=== PATIENT | female | born 1970 | race Caucasian/White ===

== ENCOUNTER 2017-03-21 11:01 | Emergency (ER) | payer OTHER ==
--- NOTE | 2017-03-21 16:56 | ED ORDER SUMMARY ---
..... Patient: TOMMIE FRIAS OrderSheet [facility] VisitID: [id number] [address] [place] [address] 47y, F Registration Date/Time: 03/21/2017 ORDER SHEET Weight: 90.7 kg (stated) Allergies: No Known Drug Allergy GENERAL ORDERS: CBC w Diff Urgent (11:03/21/2017 SStone R.N. per protocol) (11:21 SStone R.N.) CMP Urgent (:03/21/2017 SStone R.N. per protocol) (11:21 SStone R.N.) UA-Culture if indicated Urgent (:03/21/2017 SStone R.N. per protocol) (11:21 SStone R.N.) Amylase Urgent (:03/21/2017 SStone R.N. per protocol) (11:21 SStone R.N.) Lipase Urgent (:03/21/2017 SStone R.N. per protocol) (11:21 SStone R.N.) Lactate, Serum Urgent (14:03/21/2017 Lety LARA) (Ack 14:18 Lilliana) (15:16 Lilliana) MEDICATION ORDERS: IV FLUIDS: IV NS with Normal Saline 1 Liter: initial bolus 1000 mL (1000 mL/hr), then 1000 mL/hr for X1 (NOW) (:03/21/2017 SStone R.N. per protocol) (Ack 11:21 SStone R.N.) (11:32 SStone R.N.) IV Saline Lock (11:03/21/2017 SStone R.N. per protocol) (Ack 11:21 SStone R.N.) Zofran IV 4 mg (NOW) (11:25 03/21/2017 Lety LARA) (Ack 11:30 SStone R.N.) (11:31 SStone R.N.) Levaquin IV 750 mg/150 mL (NOW) (12:03/21/2017 Lety LARA) (Ack 12:13 SStone R.N.) Demerol IV 12.5 mg (NOW) (12:07 03/21/2017 Lety LARA) (Ack 12:13 SStone R.N.) (12:23 SStone R.N.) Reglan IV 10 mg (NOW) (12:07 03/21/2017 Lety LARA) (Ack 12:13 SStone R.N.) (12:23 SStone R.N.) KCl IV 20 meq/100mL (Run no faster than 10 units/hr, Run no faster than 10 mEq/hr) (13:24 03/21/2017 Lety LARA) (13:52 SStone R.N.) Demerol IV 12.5 mg (NOW) (14:41 03/21/2017 SStone R.N. verbal order read back to Lety LARA) (14:42 SStone R.N.) IV NS : initial bolus 1000 mL (1000 mL/hr), then 1000 mL/hr for X1 (NOW) (16:26 03/21/2017 SStone R.N. verbal order read back to Lety LARA) (16:27 SStone R.N.) IV NS : initial bolus none -, then 150 mL/hr (NOW) (16:26 03/21/2017 SStone R.N. verbal order read back to Lety LARA) (16:29 SStone R.N.) ORDER SHEET NOTES: [Electronically signed by oRsa Kapoor R.N. (17:12 03/21/2017)] [Electronically signed by Dwaine Pacheco MD (06:55 03/23/2017)] [Electronically locked/signed by Rosa Kapoor R.N. (17:12 03/21/2017)]
--- NOTE | 2017-03-21 16:56 | ED ORDER SUMMARY ---
..... Patient: TOMMIE FRIAS OrderSheet [facility] VisitID: [id number] [address] [place] [address] 47y, F Registration Date/Time: 03/21/2017 ORDER SHEET Weight: 90.7 kg (stated) Allergies: No Known Drug Allergy GENERAL ORDERS: CBC w Diff Urgent (11:03/21/2017 SStone R.N. per protocol) (11:21 SStone R.N.) CMP Urgent (:03/21/2017 SStone R.N. per protocol) (11:21 SStone R.N.) UA-Culture if indicated Urgent (:03/21/2017 SStone R.N. per protocol) (11:21 SStone R.N.) Amylase Urgent (:03/21/2017 SStone R.N. per protocol) (11:21 SStone R.N.) Lipase Urgent (:03/21/2017 SStone R.N. per protocol) (11:21 SStone R.N.) Lactate, Serum Urgent (14:03/21/2017 Lety LARA) (Ack 14:18 Lilliana) (15:16 Lilliana) MEDICATION ORDERS: IV FLUIDS: IV NS with Normal Saline 1 Liter: initial bolus 1000 mL (1000 mL/hr), then 1000 mL/hr for X1 (NOW) (:03/21/2017 SStone R.N. per protocol) (Ack 11:21 SStone R.N.) (11:32 SStone R.N.) IV Saline Lock (11:03/21/2017 SStone R.N. per protocol) (Ack 11:21 SStone R.N.) Zofran IV 4 mg (NOW) (11:25 03/21/2017 Lety LARA) (Ack 11:30 SStone R.N.) (11:31 SStone R.N.) Levaquin IV 750 mg/150 mL (NOW) (12:03/21/2017 Lety LARA) (Ack 12:13 SStone R.N.) Demerol IV 12.5 mg (NOW) (12:07 03/21/2017 Lety LARA) (Ack 12:13 SStone R.N.) (12:23 SStone R.N.) Reglan IV 10 mg (NOW) (12:07 03/21/2017 Lety LARA) (Ack 12:13 SStone R.N.) (12:23 SStone R.N.) KCl IV 20 meq/100mL (Run no faster than 10 units/hr, Run no faster than 10 mEq/hr) (13:24 03/21/2017 Lety LARA) (13:52 SStone R.N.) Demerol IV 12.5 mg (NOW) (14:41 03/21/2017 SStone R.N. verbal order read back to Lety LARA) (14:42 SStone R.N.) IV NS : initial bolus 1000 mL (1000 mL/hr), then 1000 mL/hr for X1 (NOW) (16:26 03/21/2017 SStone R.N. verbal order read back to Lety LARA) (16:27 SStone R.N.) IV NS : initial bolus none -, then 150 mL/hr (NOW) (16:26 03/21/2017 SStone R.N. verbal order read back to Lety LARA) (16:29 SStone R.N.) ORDER SHEET NOTES: [Electronically signed by Rosa Kapoor R.N. (17:12 03/21/2017)] [Electronically signed by Dwaine Pacheco MD (06:55 03/23/2017)] [Electronically locked/signed by Rosa Kapoor R.N. (17:12 03/21/2017)]
--- NOTE | 2017-03-21 16:56 | ED NURSING NOTES ---
Clinical Report - Nurses [facility] [place] [address] 03/21/2017 11:03 Patient: TOMMIE FRIAS TRIAGE Triage time 11:15. Chief Complaint: ABDOMINAL PAIN, NAUSEA, VOMITING and DIARRHEA. --11:19 Rosa Kapoor R.N. 11:15 03/21/17. BP: 135/99. HR: 48. RR: 24. O2 saturation: 96%. Temp: 98.7 F. Pain level now: 07/17. --11:19 Rosa Kapoor R.N. Weight: 90.7 kg stated. Height/Length: 67 inches Per Patient. BMI: 31.3. --11:17 Rosa Kapoor R.N. Medications lisinopril daily . --11:16 Rosa Kapoor R.N. Percocet Oral (Tablet 10-325 mg) up to 7 tablets, daily. --12:39 Rosa Kapoor R.N. The following entry was struck by Rosa Kapoor R.N., 12:39 (03/21/17) Reason - wrong value. <<STRICKEN ENTRY-- Pecocet prn . --11:16 Rosa Kapoor R.N. --END STRIKE>>. Allergies No Known Drug Allergy. --11:17 Rosa Kapoor R.N. History Arrived by private vehicle. Historian: patient. Onset. (3 days ago). ( Unable to keep anything down x 3 days.). PAST MEDICAL HX: Immunizations: up-to-date. SOCIAL HX: Current every day light tobacco smoker (cigarette)- less than 1/2 a pack per day. No alcohol use or drug use. No recent travel. No known contact with a sick individual. --11:19 Rosa Kapoor R.N. ( weakness). --11:25 Rosa Kapoor R.N. PROBLEMS: Hypertension. --11:17 Rosa Kapoor R.N. ADDITIONAL SURGERIES: Right knee surgery. --11:17 Rosa Kapoor R.N. NURSING PROGRESS NOTES 11:29 03/21/2017 Site #1 started via IV in the right hand with an 20g angiocath; one attempt. --11:29 Rosa Kapoor R.N. Pulse oximeter and NIBP monitor placed on patient. Patient gowned. Patient ID band checked. Instructions provided to collect clean catch urine and patient verbalized understanding. Clean catch urine collected with return of dae-colored cloudy urine; sample sent to lab for urinalysis. Call light placed in reach. Side rails up x 1. Patient waiting for evaluation. --11:29 Rosa Kapoor R.N. 11:31 03/21/2017 Zofran (Ondansetron HCl) IVP 4 mg given over 2 minute(s) via site #1. Allergies verified and confirmed 5 rights. IV patency established. IV site checked: no pain, redness, or swelling. IV flushed thoroughly pre- and post-medication administration. --11:31 Rosa Kapoor R.N. 11:32 03/21/2017 Started bag #1 1000 mL IV Fluids IV NS (Saline); at 1000 mL/hr over 1 hour(s) via site #1. Allergies verified and confirmed 5 rights. IV patency established. IV site checked: no pain, redness, or swelling. IV flushed thoroughly pre- and post-medication administration. --11:32 Rosa Kapoor R.N. 12:13 03/21/2017 Demerol (Meperidine HCl) IVP 12.5 mg given over 2 minute(s) via site #1. --12:23 Rosa Kapoor R.N. 12:23 03/21/2017 Reglan (Metoclopramide HCl) IVP 10 mg given over 10 minute(s) via site #1. Allergies verified and confirmed 5 rights. IV patency established. IV site checked: no pain, redness, or swelling. IV flushed thoroughly pre- and post-medication administration. --12:23 Rosa Kapoor R.N. 12:34 03/21/17. BP: 133/72. HR: 100. RR: 20. O2 saturation: 100%. Pain level now: 03/16. --12:37 Rosa Kapoor R.N. ( pt reports minimal relief with the Demerol, now 5/10 from 07/17. Will continue to monitor.). --12:37 Rosa Kapoor R.N. 13:52 03/21/2017 Started 20 meq of KCL (Potassium Chloride) IVPB in bag #1 100 mL; at 50 mL/hr over 2 hour(s) via site #1; Allergies verified and confirmed 5 rights. IV patency established. IV site checked: no pain, redness, or swelling. IV flushed thoroughly pre- and post-medication administration. --13:52 Rosa Kapoor R.N. 13:52 03/21/17. BP: 153/100. HR: 103. O2 saturation: 100%. Pain level now: 03/16. --13:52 Rosa Kapoor R.N. 14:42 03/21/2017 Demerol (Meperidine HCl) IVP 12.5 mg given over 1 minute(s) via site #1. Allergies verified and confirmed 5 rights. IV patency established. IV site checked: no pain, redness, or swelling. IV flushed thoroughly pre- and post-medication administration. --14:42 Rosa Kapoor R.N. 15:33 03/21/17. BP: 135/75. HR: 90. RR: 18. O2 saturation: 97%. Temp: 99.8 F. Pain level now: 12/17. --15:33 Rosa Kapoor R.N. ( pt reports per pain has decreased to a 2/10 and tolerable. Requesting food/water. notified.). --15:33 Rosa Kapoor R.N. 14:00- pt tolerated water well, given crackers. --16:03 Rosa Kapoor R.N. late entry - 15:45- po challenge with water. --16:02 Rosa Kapoor R.N. 16:03 03/21/17. BP: 141/73. --16:04 Rosa Kapoor R.N. ( pt tolerated po well. Resting quietly. given another warm blanket.). --16:26 Rosa Kapoor R.N. 13:52 03/21/2017 Started bag #1 1000 mL IV Fluids IV NS (Saline); at 1000 mL/hr over 1 hour(s) via site #1 via IV pump. Allergies verified and confirmed 5 rights. --16:27 Rosa Kapoor R.N. 13:52 03/21/2017 IV Fluids IV NS Discontinued: bag #1 infused. Total amount infused: 1000 mL. IV patency established. IV site checked: no pain, redness, or swelling. IV flushed thoroughly. --16:28 Rosa Kapoor R.N. 14:52 03/21/2017 IV Fluids IV NS Discontinued: bag #2 infused. Total amount infused: 1000 mL. IV patency established. IV site checked: no pain, redness, or swelling. IV flushed thoroughly. --16:28 Rosa Kapoor R.N. 14:55 03/21/2017 Started bag #1 1000 mL IV Fluids IV NS (Saline); at 150 mL/hr over 7.5 hour(s) via site #1 --16:29 Rosa Kapoor R.N. 17:11 03/21/2017 IV Fluids IV NS Discontinued: bag #3 STOPPED upon discharge. Total amount infused: 800 mL. IV patency established. IV site checked: no pain, redness, or swelling. IV flushed thoroughly. --17:11 Rosa Kapoor R.N. DISPOSITION / DISCHARGE 17:10 03/21/2017 Site #1 removed upon discharge. --17:10 Rosa Kapoor R.N. Departure time: 1711. No learning barriers present. Discharge instructions provided and reviewed with the patient. Reviewed warnings (return for worsening s/s). Reviewed medication(s) side effects information. Prescription(s) given to the patient. Reviewed referrals (PCP). Patient verbalized understanding. Written instructions provided in Maldivian. The patient was discharged by the physician. She was discharged home. She left the Emergency Department ambulatory and via private vehicle. Patient driving. --17:11 Rosa Kapoor R.N. 17:10 03/21/17. BP: 140/72. HR: 92. RR: 18. O2 saturation: 97%. Temp: 99.8 F. Pain level now: 12/17. --17:11 Rosa Kapoor R.N. Locked/Released at 03/21/2017 17:12 by Rosa Kapoor R.N.
--- NOTE | 2017-03-21 16:56 | ED CLINICAL REPORT ---
Clinical Report - Physicians/Mid Levels [facility] [address] [place] [address] 03/21/2017 11:03 Patient: TOMMIE FRIAS Time Seen: 12:00 Mar 21 2017. Arrived- By private vehicle. Historian- patient. CPT: ER phys charges level 4 (#[id number]). HISTORY OF PRESENT ILLNESS Chief Complaint: VOMITING and DIARRHEA. ABDOMINAL CRAMPS. 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 (3 days ago). ( Unable to keep anything down x 3 days and is still present. No recent travel. She has had nausea, vomiting, diarrhea and abdominal pain. Has not recently been on antibiotics. No history of possible bad food exposure or known contact with a sick individual. The illness is described as moderate. Similar symptoms previously: None. Recent medical care: Not recently seen/assessed. REVIEW OF SYSTEMS No fever, muscle aches, difficulty with urination, dark urine or headache. No dizziness, cough, chest pain, difficulty breathing or excessive urination. No skin rash or back pain. Denies current . All systems otherwise negative, except as recorded above. PAST HISTORY Hypertension. Problems: Cervical Strain. Myofascial Strain. Thyroid Disease. Medications: Pecocet prn . lisinopril daily . Allergies: No Known Drug Allergy. SOCIAL HISTORY Heavy tobacco smoker (cigarette)- less than 1 pack per day. No alcohol use or drug use. ADDITIONAL NOTES The nursing notes have been reviewed. PHYSICAL EXAM Vital Signs: 03/21/2017 11:15 BP: 135/99. HR: 48. RR: 24. O2 saturation: 96%. Temp: 98.7 F. Pain level now: 9/10. Appearance: Alert. Patient in mild distress. Eyes: Eyes normal inspection. ENT: Dry mucous membranes present. Pharynx normal. Neck: Normal inspection. No meningeal signs. CVS: Normal heart rate and rhythm. Heart sounds normal. Pulses normal. No cardiac murmur. Respiratory: No respiratory distress. Breath sounds normal. Abdomen: Soft. Mild tenderness in the periumbilical area. Bowel sounds normal. Back: Normal inspection. No CVA tenderness. Skin: Skin warm. Normal skin color. No rash. Extremities: Extremities exhibit normal ROM. No lower extremity edema. Neuro: Oriented X 3. No motor deficit. No sensory deficit. LABS, X-RAYS, AND EKG Laboratory Tests: UA-Culture if indicated: (EDUARDO: 03/21/2017 11:15) ( [facility] 03/21/2017 11:36) Final results Test Result Flag Units (Reference) URINE COLOR JAQUI URINE APPEARANCE CLOUDY URINE GLUCOSE NEGATIVE (NEGATIVE) URINE BILIRUBIN NEGATIVE (NEGATIVE) URINE KETONE NEGATIVE (NEGATIVE) URINE SPECIFIC GRAVITY >= 1.030 (1.010-1.030) URINE PH 6.0 (5.0-8.0) URINE PROTEIN 1+ (NEGATIVE) URINE UROBILINOGEN 0.2 EU/dL (0.2-1.0) URINE NITRITE NEGATIVE (NEGATIVE) URINE BLOOD 3+ (NEGATIVE) URINE LEUK ESTERASE POSITIVE (NEGATIVE) URINE RBC 3-5 rbc/hpf (0-1) URINE WBC 50-75 wbc/hpf (0-1) URINE EPITHELIAL CELLS 5-10 EPI/hpf (0-5) URINE BACTERIA MANY (4+) (NONE SEEN) URINE COMMENT CULTURE INDICATED URINE CULTURES ARE SET-UP BASED ON THE FOLLOWING CRITERIA:POSITIVE NITRITEPOSITIVE LEUKOCYTE ESTERASEGREATER THAN 10 WHITE BLOOD CELLSMODERATE (2+) OR GREATER BACTERIA CBC w Diff: (EDUARDO: 03/21/2017 11:35) ( [facility] 03/21/2017 12:01) Final results Test Result Flag Units (Reference) WHITE BLOOD COUNT 16.6 H K/uL (4.5-11.5) RED BLOOD COUNT 5.10 M/uL (4.00-5.20) HEMOGLOBIN 15.8 gm/dL (12.0-16.0) HEMATOCRIT 47.4 H % (36.0-46.0) MEAN CELL VOLUME 93 fL (80-100) MEAN CORPUSCULAR HGB 31 pg (26-34) MEAN CORPUSCULAR HGB CONC 33 g/dL (31-37) RED CELL DISTRIBUTION WIDTH 13.1 % (11.6-14.8) PLATELET COUNT 293 K/uL (150-400) NEUTROPHIL % 85.9 H % (50-75) LYMPH % 8.9 L % (25-40) MONO % 5.2 % (3-14) EOSINOPHIL % 0 % (0-4) BASOPHIL % 0 % (0-2) CMP: (EDUARDO: 03/21/2017 11:35) ( MsgRcvd 03/21/2017 12:13) Final results Test Result Flag Units (Reference) GLUCOSE 117 H mg/dL (70-110) BUN 14 mg/dL (7-18) CREATININE 1.1 mg/dL (0.6-1.3) Estimated GFR 56.11 mL/min Estimated GFR- >60 mL/min Note: Persistent reduction over 3 months in eGFR<60 mL/min/1.73 m2 defines CKD. Patients with eGFR values>=60 mL/min/1.73 m2 may also have CKD if evidence ofpersistent proteinuria. Additional information may be foundat www.kidney.org. SODIUM 141 mmol/L (136-145) POTASSIUM 3.0 L mmol/L (3.5-5.1) CHLORIDE 98 mmol/L (98-107) CARBON DIOXIDE 28 mmol/L (21-32) CALCIUM 10.1 mg/dL (8.5-10.1) TOTAL PROTEIN 8.6 H g/dL (6.4-8.2) ALBUMIN 4.6 g/dL (3.3-5.0) BILIRUBIN, TOTAL 0.7 mg/dL (0.0-1.0) ALKALINE PHOSPHATASE 109 U/L (46-116) AST (SGOT) 14 L U/L (15-37) ALT (SGPT) 20 U/L (12-78) LIPASE 220 U/L (73-393) AMYLASE 38 U/L (25-115) . PROGRESS AND PROCEDURES Course of Care: IV NS Levaquin 750 mg IV for UTI Zofran 4 mg IV Reglan 10 mg IV Demerol 12.5 mg IV KCL 20 meq IV Patient is stable. Symptoms better. Pt has UTI but no symptoms consistent with it and she notes this is how her other UTI's have been. She is on high dose narcotics, 80 mg oxycodone per day , and has not kept meds down for 3 days . She is having narcotic withdrawal due to this. Patient/family counseled. Disposition: Discharged. Condition: stable. CLINICAL IMPRESSION Acute urinary tract infection with cystitis. Intractable vomiting with nausea, dehydration and volume depletion. 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 Hypokalemia due to vomiting. INSTRUCTIONS Do not work for three days until better. Drink plenty of fluids. (You had to be given IV narcotics for pain control while in the emergency room today. Your pain Doctor can call if there are any questions. [phone].). Warnings: Further evaluation is necessary. SEDATIVE MEDICATION: You were given sedative medication during your visit. Do not drive or operate dangerous machinery. GENERAL WARNINGS: Return or contact your physician immediately if your condition worsens or changes unexpectedly, if not improving as expected, or if other problems arise. Your Current Medications: CONTINUE TAKING THE FOLLOWING MEDICATIONS: lisinopril daily *. Percocet Oral : Tablet 10-325 mg, up to 7 tablets daily. Prescription Medications: Zofran (orally disintegrating tablets) 4 mg: take 1 orally every 4 hours as needed for nausea. Dispense fifteen (15). No refill. Levaquin 500 mg: take 1 tab orally every day for 10 days. No refills. Follow-up: Follow up with your doctor Tuesday in four days. Call for an appointment. Understanding of the discharge instructions verbalized by patient. (Electronically signed by Dwaine Pacheco MD 03/23/2017 6:55)
--- NOTE | 2017-03-21 16:56 | ED CLINICAL REPORT ---
Clinical Report - Physicians/Mid Levels [facility] [address] [place] [address] 03/21/2017 11:03 Patient: TOMMIE FRIAS Time Seen: 12:00 Mar 21 2017. Arrived- By private vehicle. Historian- patient. CPT: ER phys charges level 4 (#[id number]). HISTORY OF PRESENT ILLNESS Chief Complaint: VOMITING and DIARRHEA. ABDOMINAL CRAMPS. 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 (3 days ago). ( Unable to keep anything down x 3 days and is still present. No recent travel. She has had nausea, vomiting, diarrhea and abdominal pain. Has not recently been on antibiotics. No history of possible bad food exposure or known contact with a sick individual. The illness is described as moderate. Similar symptoms previously: None. Recent medical care: Not recently seen/assessed. REVIEW OF SYSTEMS No fever, muscle aches, difficulty with urination, dark urine or headache. No dizziness, cough, chest pain, difficulty breathing or excessive urination. No skin rash or back pain. Denies current . All systems otherwise negative, except as recorded above. PAST HISTORY Hypertension. Problems: Cervical Strain. Myofascial Strain. Thyroid Disease. Medications: Pecocet prn . lisinopril daily . Allergies: No Known Drug Allergy. SOCIAL HISTORY Heavy tobacco smoker (cigarette)- less than 1 pack per day. No alcohol use or drug use. ADDITIONAL NOTES The nursing notes have been reviewed. PHYSICAL EXAM Vital Signs: 03/21/2017 11:15 BP: 135/99. HR: 48. RR: 24. O2 saturation: 96%. Temp: 98.7 F. Pain level now: 9/10. Appearance: Alert. Patient in mild distress. Eyes: Eyes normal inspection. ENT: Dry mucous membranes present. Pharynx normal. Neck: Normal inspection. No meningeal signs. CVS: Normal heart rate and rhythm. Heart sounds normal. Pulses normal. No cardiac murmur. Respiratory: No respiratory distress. Breath sounds normal. Abdomen: Soft. Mild tenderness in the periumbilical area. Bowel sounds normal. Back: Normal inspection. No CVA tenderness. Skin: Skin warm. Normal skin color. No rash. Extremities: Extremities exhibit normal ROM. No lower extremity edema. Neuro: Oriented X 3. No motor deficit. No sensory deficit. LABS, X-RAYS, AND EKG Laboratory Tests: UA-Culture if indicated: (EDUARDO: 03/21/2017 11:15) ( [facility] 03/21/2017 11:36) Final results Test Result Flag Units (Reference) URINE COLOR JAQUI URINE APPEARANCE CLOUDY URINE GLUCOSE NEGATIVE (NEGATIVE) URINE BILIRUBIN NEGATIVE (NEGATIVE) URINE KETONE NEGATIVE (NEGATIVE) URINE SPECIFIC GRAVITY >= 1.030 (1.010-1.030) URINE PH 6.0 (5.0-8.0) URINE PROTEIN 1+ (NEGATIVE) URINE UROBILINOGEN 0.2 EU/dL (0.2-1.0) URINE NITRITE NEGATIVE (NEGATIVE) URINE BLOOD 3+ (NEGATIVE) URINE LEUK ESTERASE POSITIVE (NEGATIVE) URINE RBC 3-5 rbc/hpf (0-1) URINE WBC 50-75 wbc/hpf (0-1) URINE EPITHELIAL CELLS 5-10 EPI/hpf (0-5) URINE BACTERIA MANY (4+) (NONE SEEN) URINE COMMENT CULTURE INDICATED URINE CULTURES ARE SET-UP BASED ON THE FOLLOWING CRITERIA:POSITIVE NITRITEPOSITIVE LEUKOCYTE ESTERASEGREATER THAN 10 WHITE BLOOD CELLSMODERATE (2+) OR GREATER BACTERIA CBC w Diff: (EDUARDO: 03/21/2017 11:35) ( [facility] 03/21/2017 12:01) Final results Test Result Flag Units (Reference) WHITE BLOOD COUNT 16.6 H K/uL (4.5-11.5) RED BLOOD COUNT 5.10 M/uL (4.00-5.20) HEMOGLOBIN 15.8 gm/dL (12.0-16.0) HEMATOCRIT 47.4 H % (36.0-46.0) MEAN CELL VOLUME 93 fL (80-100) MEAN CORPUSCULAR HGB 31 pg (26-34) MEAN CORPUSCULAR HGB CONC 33 g/dL (31-37) RED CELL DISTRIBUTION WIDTH 13.1 % (11.6-14.8) PLATELET COUNT 293 K/uL (150-400) NEUTROPHIL % 85.9 H % (50-75) LYMPH % 8.9 L % (25-40) MONO % 5.2 % (3-14) EOSINOPHIL % 0 % (0-4) BASOPHIL % 0 % (0-2) CMP: (EDUARDO: 03/21/2017 11:35) ( MsgRcvd 03/21/2017 12:13) Final results Test Result Flag Units (Reference) GLUCOSE 117 H mg/dL (70-110) BUN 14 mg/dL (7-18) CREATININE 1.1 mg/dL (0.6-1.3) Estimated GFR 56.11 mL/min Estimated GFR- >60 mL/min Note: Persistent reduction over 3 months in eGFR<60 mL/min/1.73 m2 defines CKD. Patients with eGFR values>=60 mL/min/1.73 m2 may also have CKD if evidence ofpersistent proteinuria. Additional information may be foundat www.kidney.org. SODIUM 141 mmol/L (136-145) POTASSIUM 3.0 L mmol/L (3.5-5.1) CHLORIDE 98 mmol/L (98-107) CARBON DIOXIDE 28 mmol/L (21-32) CALCIUM 10.1 mg/dL (8.5-10.1) TOTAL PROTEIN 8.6 H g/dL (6.4-8.2) ALBUMIN 4.6 g/dL (3.3-5.0) BILIRUBIN, TOTAL 0.7 mg/dL (0.0-1.0) ALKALINE PHOSPHATASE 109 U/L (46-116) AST (SGOT) 14 L U/L (15-37) ALT (SGPT) 20 U/L (12-78) LIPASE 220 U/L (73-393) AMYLASE 38 U/L (25-115) . PROGRESS AND PROCEDURES Course of Care: IV NS Levaquin 750 mg IV for UTI Zofran 4 mg IV Reglan 10 mg IV Demerol 12.5 mg IV KCL 20 meq IV Patient is stable. Symptoms better. Pt has UTI but no symptoms consistent with it and she notes this is how her other UTI's have been. She is on high dose narcotics, 80 mg oxycodone per day , and has not kept meds down for 3 days . She is having narcotic withdrawal due to this. Patient/family counseled. Disposition: Discharged. Condition: stable. CLINICAL IMPRESSION Acute urinary tract infection with cystitis. Intractable vomiting with nausea, dehydration and volume depletion. 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 Hypokalemia due to vomiting. INSTRUCTIONS Do not work for three days until better. Drink plenty of fluids. (You had to be given IV narcotics for pain control while in the emergency room today. Your pain Doctor can call if there are any questions. [phone].). Warnings: Further evaluation is necessary. SEDATIVE MEDICATION: You were given sedative medication during your visit. Do not drive or operate dangerous machinery. GENERAL WARNINGS: Return or contact your physician immediately if your condition worsens or changes unexpectedly, if not improving as expected, or if other problems arise. Your Current Medications: CONTINUE TAKING THE FOLLOWING MEDICATIONS: lisinopril daily *. Percocet Oral : Tablet 10-325 mg, up to 7 tablets daily. Prescription Medications: Zofran (orally disintegrating tablets) 4 mg: take 1 orally every 4 hours as needed for nausea. Dispense fifteen (15). No refill. Levaquin 500 mg: take 1 tab orally every day for 10 days. No refills. Follow-up: Follow up with your doctor Tuesday in four days. Call for an appointment. Understanding of the discharge instructions verbalized by patient. (Electronically signed by Dwaine Pacheco MD 03/23/2017 6:55)
--- NOTE | 2017-03-23 06:56 | ED MED RECONCILIATION SUMMARY ---
Patient: TOMMIE FRIAS Medication Reconciliation Report [facility] VisitID: [id number] [address] [place] [address] 47y, F Registration Date/Time: 03/21/2017 Weight: 90.7 kg Height/Length: 67 in. BMI: 31.3 ALLERGIES: No Known Drug Allergy The patient's Home Medications are listed below: CONTINUE TAKING THE FOLLOWING MEDICATIONS: lisinopril daily Percocet Oral (10-325 mg) up to 7 tablets, daily The source(s) of the original Home Medication information: Not obtained. The following Medications were given to the patient in the Emergency Department: Zofran [IVP] IVP 4 mg, administered: 03/21/2017 11:31:00 AM IV NS IV Fluids bolus 0, then 1000 mL/hr, administered: 03/21/2017 11:32:00 AM Reglan [IVP] IVP 10 mg, administered: 03/21/2017 12:23:00 PM Demerol [IVP] IVP 12.5 mg, administered: 03/21/2017 12:13:00 PM KCL [IVPB] IVPB bolus 0, then 20 meq 50 mL/hr, administered: 03/21/2017 1:52:00 PM Demerol [IVP] IVP 12.5 mg, administered: 03/21/2017 2:42:00 PM IV NS IV Fluids bolus 0, then 1000 mL/hr, administered: 03/21/2017 1:52:00 PM IV NS IV Fluids bolus 0, then 150 mL/hr, administered: 03/21/2017 2:55:00 PM The following Medications were prescribed to the patient: Zofran (orally disintegrating tablets) 4 mg: take 1 orally every 4 hours as needed for nausea. Dispense fifteen (15). No refill. -- Dwaine Pacheco MD Levaquin 500 mg: take 1 tab orally every day for 10 days. No refills. -- Dwaine Pacheco MD
--- NOTE | 2017-03-23 06:56 | ED DISCHARGE INSTRUCTIONS ---
Patient: TOMMIE FRIAS General Instructions [facility] VisitID: [id number] [facility] [place] [address] 47y, F Registration Date/Time: 03/21/2017 Acute urinary tract infection with cystitis. Intractable vomiting with nausea, dehydration and volume depletion. 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 Hypokalemia due to vomiting. INSTRUCTIONS Do not work for three days until better. Drink plenty of fluids. (You had to be given IV narcotics for pain control while in the emergency room today. Your pain Doctor can call if there are any questions. [phone].). Warnings: Further evaluation is necessary. SEDATIVE MEDICATION: You were given sedative medication during your visit. Do not drive or operate dangerous machinery. GENERAL WARNINGS: Return or contact your physician immediately if your condition worsens or changes unexpectedly, if not improving as expected, or if other problems arise. Your Current Medications: CONTINUE TAKING THE FOLLOWING MEDICATIONS: lisinopril daily *. Percocet Oral : Tablet 10-325 mg, up to 7 tablets daily. Prescription Medications: Zofran (orally disintegrating tablets) 4 mg: take 1 orally every 4 hours as needed for nausea. Dispense fifteen (15). No refill. Levaquin 500 mg: take 1 tab orally every day for 10 days. No refills. Follow-up: Follow up with your doctor Tuesday in four days. Call for an appointment. Understanding of the discharge instructions verbalized by patient. ADDITIONAL INFORMATION Vomiting [6Yr-Adult] Vomiting is a common symptom that may be due to different causes. These include gastroenteritis ("stomach flu"), food poisoning and gastritis. There are other more serious causes of vomiting which may be hard to diagnose early in the illness. Therefore, it is important to watch for the warning signs listed below. The main danger from repeated vomiting is dehydration. This is due to excess loss of water and minerals from the body. When this occurs, body fluids must be replaced. Home Care: If symptoms are severe, rest at home for the next 24 hours. You may use acetaminophen (Tylenol) or ibuprofen (Motrin, Advil) to control fever, unless another medicine was prescribed. [NOTE : If you have chronic liver or kidney disease or ever had a stomach ulcer or GI bleeding, talk with your doctor before using these medicines.] (Aspirin should never be used in anyone under 18 years of age who is ill with a fever. It may cause severe liver damage.) Avoid tobacco and alcohol use, which may worsen your symptoms. If medicines for vomiting were prescribed, take as directed. Once vomiting stops, then follow these guidelines: During The First 12-24 Hours follow the diet below: FRUIT JUICES: Apple, grape juice, clear fruit drinks, and electrolyte replacement drinks. BEVERAGES: Soft drinks without caffeine; mineral water (plain or flavored), decaffeinated tea and coffee. SOUPS: Clear broth, consomm and bouillon DESSERTS: Plain gelatin, popsicles and fruit juice bars. As you feel better, you may add 6-8 ounces of yogurt per day. During The Next 24 Hours you may add the following to the above: Hot cereal, plain toast, bread, rolls, crackers Plain noodles, rice, mashed potatoes, chicken noodle or rice soup Unsweetened canned fruit (avoid pineapple), bananas Limit caffeine and chocolate. No spices or seasonings except salt. During The Next 24 Hours Gradually resume a normal diet, as you feel better and your symptoms lessen. Follow Up with your doctor as advised if you are not improving over the next 2-3 days. Get Prompt Medical Attention if any of the following occur: Constant right-sided lower abdominal pain or increasing general abdominal pain Continued vomiting (unable to keep liquids down) for 24 hours Frequent diarrhea (more than 5 times a day); blood (red or black color) or mucus in diarrhea Reduced urine output or extreme thirst Weakness, dizziness or fainting Unusually drowsy or confused Fever of 100.4F (38C) oral or higher, not better with fever medication Yellow color of the eyes or skin Bladder Infection,Female (Adult) A bladder infection ("cystitis" or "UTI") usually causes a constant urge to urinate and a burning when passing urine. Urine may be cloudy, smelly or dark. There may be pain in the lower abdomen. A bladder infection occurs when bacteria from the vaginal area enter the bladder opening (urethra). This can occur from sexual intercourse, wearing tight clothing, dehydration and other factors. Home Care: Drink lots of fluids (at least 6-8 glasses a day, unless you must restrict fluids for other medical reasons). This will force the medicine into your urinary system and flush the bacteria out of your body. Avoid sexual intercourse until your symptoms are gone. Avoid caffeine, alcohol and spicy foods. These can irritate the bladder. A bladder infection is treated with antibiotics. You may also be given Pyridium (generic = phenazopyridine) to reduce the burning sensation. This medicine will cause your urine to become a bright orange color. The orange urine may stain clothing. You may wear a pad or panty-liner to protect clothing. Preventing Future Infections: Always wipe from front to back after a bowel movement. Keep the genital area clean and dry. Drink plenty of fluids each day to avoid dehydration. Both sexual partners should wash before intercourse. Urinate right after intercourse to flush out the bladder. Wear cotton underwear and cotton-lined panty hose; avoid tight-fitting pants. If you are on control pills and are having frequent bladder infections, discuss with your doctor. Follow Up: Return to this facility or see your doctor if ALL symptoms are not gone after three days of treatment. Get Prompt Medical Attention if any of the following occur: Fever of 100.4F (38C) or higher, or as directed by your healthcare provider No improvement by the third day of treatment Increasing back or abdominal pain Repeated vomiting; unable to keep medicine down Weakness, dizziness or fainting Vaginal discharge Pain, redness or swelling in the labia (outer vaginal area) Dehydration (Adult) Dehydration occurs when your body loses too much fluid. This may be the result of vomiting a lot or from diarrhea,sweating a lot, or a high fever. It may also happen if you dont drink enough fluid when youre sick. Misuse of diuretics (water pills) can also be a cause. Symptoms include thirst and feeling dizzy, weak, fatigued, or very drowsy. The diet described below is usually enough to treat most cases. Sometimes you may needmedicine. Home Care Follow these guidelines for home care: Drink at least 12 8-ounce glasses of fluid every day to overcome the dehydration. Fluid may include water; orange juice; lemonade; apple, grape, and cranberry juice; clear fruit drinks; electrolyte replacement and sports drinks; and teas and coffee without caffeine. If you have been diagnosed with a kidney disease, ask your doctor how much and what types of fluids you should drink to prevent dehydration. If you have kidney disease, drinking too much fluid can cause it build up in the your body and be dangerous to your health. If you have fever, muscle aching, or headache from a viral syndrome, you may useacetaminophen or ibuprofen, unless another medicine was prescribed for this.If you have chronic liver or kidney disease or ever had a stomach ulcer or GI bleeding, talk with your doctor before using these medicines. Don't take aspirin if you are younger than 18 and are ill with a fever.Aspirin raises the chance forsevere liver injury. Follow-up care Follow up with your health care provider if you don't get better in the next 24 to 48 hours. When to seek medical care Get prompt medical attention if any of theseoccur: Continued vomiting (cant keep liquids down) Frequent diarrhea (more than 5 times a day); blood (red or black color) or mucus in diarrhea Blood in vomit or stool Swollen abdomen or increasing abdominal pain Weakness, dizziness, or fainting Unusually drowsy or confused Reduced urine output or extreme thirst Fever of 100.4 F (38 C) oral or higher that does not get better with fever medication Ondansetron Oral disintegrating tablet What is this medicine? ONDANSETRON (on KIARA se candelario) is used to treat nausea and vomiting caused by chemotherapy. It is also used to prevent or treat nausea and vomiting after surgery. How should I use this medicine? These tablets are made to dissolve in the mouth. Do not try to push the tablet through the foil backing. With dry hands, peel away the foil backing and gently remove the tablet. Place the tablet in the mouth and allow it to dissolve, then swallow. While you may take these tablets with water, it is not necessary to do so. Talk to your insulation applicator regarding the use of this medicine in children. Special care may be needed. What side effects may I notice from receiving this medicine? Side effects that you should report to your doctor or health long term care pharmacist as soon as possible: allergic reactions like skin rash, itching or hives, swelling of the face, lips, or tongue breathing problems dizziness fast or irregular heartbeat feeling faint or lightheaded, falls fever and chills swelling of the hands and feet tightness in the chest Side effects that usually do not require medical attention (report to your doctor or health long term care pharmacist if they continue or are bothersome): constipation or diarrhea headache What may interact with this medicine? Do not take this medicine with any of the following medications: -apomorphine -cisapride -dofetilide -dronedarone -pimozide -thioridazine -ziprasidone This medicine may also interact with the following medications: -carbamazepine -phenytoin -rifampicin -tramadol -other medicines that prolong the QT interval (cause an abnormal heart rhythm) What if I miss a dose? If you miss a dose, take it as soon as you can. If it is almost time for your next dose, take only that dose. Do not take double or extra doses. Where should I keep my medicine? Keep out of the reach of children. Store between 2 and 30 degrees C (36 and 86 degrees F). Throw away any unused medicine after the expiration date. What should I tell my health care provider before I take this medicine? They need to know if you have any of these conditions: heart disease history of irregular heartbeat liver disease low levels of magnesium or potassium in the blood an unusual or allergic reaction to ondansetron, granisetron, other medicines, foods, dyes, or preservatives or trying to get breast-feeding What should I watch for while using this medicine? Check with your doctor or health long term care pharmacist as soon as you can if you have any sign of an allergic reaction. Levofloxacin Oral tablet What is this medicine? LEVOFLOXACIN (hoda bedolla) is a quinolone antibiotic. It is used to treat certain kinds of bacterial infections. It will not work for colds, flu, or other viral infections. How should I use this medicine? Take this medicine by mouth with a full glass of water. Follow the directions on the prescription label. This medicine can be taken with or without food. Take your medicine at regular intervals. Do not take your medicine more often than directed. Do not skip doses or stop your medicine early even if you feel better. Do not stop taking except on your doctor's advice. A special MedGuide will be given to you by the pharmacist with each prescription and refill. Be sure to read this information carefully each time. Talk to your insulation applicator regarding the use of this medicine in children. While this drug may be prescribed for children as young as 6 months for selected conditions, precautions do apply. What side effects may I notice from receiving this medicine? Side effects that you should report to your doctor or health long term care pharmacist as soon as possible: -allergic reactions like skin rash or hives, swelling of the face, lips, or tongue -changes in vision -confusion, nightmares or hallucinations -difficulty breathing -irregular heartbeat, chest pain -joint, muscle or tendon pain -pain or difficulty passing urine -persistent headache with or without blurred vision -redness, blistering, peeling or loosening of the skin, including inside the mouth -seizures -unusual pain, numbness, tingling, or weakness -vaginal irritation, discharge Side effects that usually do not require medical attention (report to your doctor or health long term care pharmacist if they continue or are bothersome): -diarrhea -dry mouth -headache -stomach upset, nausea -trouble sleeping What may interact with this medicine? Do not take this medicine with any of the following medications: - arsenic trioxide - chloroquine - droperidol - medicines for irregular heart rhythm like amiodarone, disopyramide, dofetilide, flecainide, quinidine, procainamide, sotalol - some medicines for depression or mental problems like phenothiazines, pimozide, and ziprasidone This medicine may also interact with the following medications: - amoxapine -antacids - cisapride - dairy products - didanosine (ddI) buffered tablets or powder - haloperidol - multivitamins -NSAIDS, medicines for pain and inflammation, like ibuprofen or naproxen - retinoid products like tretinoin or isotretinoin - risperidone - some other antibiotics like clarithromycin or erythromycin - sucralfate - theophylline - warfarin What if I miss a dose? If you miss a dose, take it as soon as you remember. If it is almost time for your next dose, take only that dose. Do not take double or extra doses. Where should I keep my medicine? Keep out of the reach of children. Store at room temperature between 15 and 30 degrees C (59 and 86 degrees F). Keep in a tightly closed container. Throw away any unused medicine after the expiration date. What should I tell my health care provider before I take this medicine? They need to know if you have any of these conditions: cerebral disease irregular heartbeat kidney disease seizure disorder an unusual or allergic reaction to levofloxacin, other antibiotics or medicines, foods, dyes, or preservatives or trying to get breast-feeding What should I watch for while using this medicine? Tell your doctor or health long term care pharmacist if your symptoms do not improve or if they get worse. Drink several glasses of water a day and cut down on drinks that contain caffeine. You must not get dehydrated while taking this medicine. You may get drowsy or dizzy. Do not drive, use machinery, or do anything that needs mental alertness until you know how this medicine affects you. Do not sit or stand up quickly, especially if you are an older patient. This reduces the risk of dizzy or fainting spells. This medicine can make you more sensitive to the sun. Keep out of the sun. If you cannot avoid being in the sun, wear protective clothing and use a sunscreen. Do not use sun lamps or tanning beds/booths. Contact your doctor if you get a sunburn. If you are a diabetic monitor your blood glucose carefully. If you get an unusual reading stop taking this medicine and call your doctor right away. Do not treat diarrhea with [id number] products. Contact your doctor if you have diarrhea that lasts more than 2 days or if the diarrhea is severe and watery. Avoid antacids, calcium, iron, and zinc products for 2 hours before and 2 hours after taking a dose of this medicine. You have been given the following additional information: Vomiting (6Y-Adult) Bladder Infection, Female (Adult) Dehydration (Adult) Ondansetron Oral disintegrating tablet Levofloxacin Oral tablet Do not work for three days until better. (Electronically signed by Dwaine Pacheco MD 03/23/2017 6:55)
--- NOTE | 2017-03-23 06:56 | ED MED RECONCILIATION SUMMARY ---
Patient: TOMMIE FRIAS Medication Reconciliation Report [facility] VisitID: [id number] [address] [place] [address] 47y, F Registration Date/Time: 03/21/2017 Weight: 90.7 kg Height/Length: 67 in. BMI: 31.3 ALLERGIES: No Known Drug Allergy The patient's Home Medications are listed below: CONTINUE TAKING THE FOLLOWING MEDICATIONS: lisinopril daily Percocet Oral (10-325 mg) up to 7 tablets, daily The source(s) of the original Home Medication information: Not obtained. The following Medications were given to the patient in the Emergency Department: Zofran [IVP] IVP 4 mg, administered: 03/21/2017 11:31:00 AM IV NS IV Fluids bolus 0, then 1000 mL/hr, administered: 03/21/2017 11:32:00 AM Reglan [IVP] IVP 10 mg, administered: 03/21/2017 12:23:00 PM Demerol [IVP] IVP 12.5 mg, administered: 03/21/2017 12:13:00 PM KCL [IVPB] IVPB bolus 0, then 20 meq 50 mL/hr, administered: 03/21/2017 1:52:00 PM Demerol [IVP] IVP 12.5 mg, administered: 03/21/2017 2:42:00 PM IV NS IV Fluids bolus 0, then 1000 mL/hr, administered: 03/21/2017 1:52:00 PM IV NS IV Fluids bolus 0, then 150 mL/hr, administered: 03/21/2017 2:55:00 PM The following Medications were prescribed to the patient: Zofran (orally disintegrating tablets) 4 mg: take 1 orally every 4 hours as needed for nausea. Dispense fifteen (15). No refill. -- Dwaine Pacheco MD Levaquin 500 mg: take 1 tab orally every day for 10 days. No refills. -- Dwaine Pacheco MD
--- NOTE | 2017-03-23 06:56 | ED MAR SUMMARY ---
..... Medication Administration Record [facility] [address] [place] [address] Patient: TOMMIE FRIAS Visit ID: [id number] 47y, F Weight: 90.7 kg Height/Length: 67 in BMI: 31.3 ALLERGIES: No Known Drug Allergy Given 11:03/21/2017 Rosa Kapoor R.N. Medication Administered: ZOFRAN [IVP] (ONDANSETRON HCL), Dose: 4 mg IVP over 2 minute(s), Site: #1 right hand. Medication Ordered: Zofran IV 4 mg (NOW). Start 11:32 03/21/2017 Rosa Kapoor R.N., Stop 13:03/21/2017 Rosa Kapoor R.N. Medication Administered: IV NS (SALINE), Dose: IV Fluids over 1 hour(s), Rate: 1000 mL/hr, Dispensed: 1000 mL bag, Site: #1 right hand. Medication Ordered: IV NS with Normal Saline 1 Liter: initial bolus 1000 mL (1000 mL/hr), then 1000 mL/hr for X1 (NOW). Given 12:03/21/2017 Rosa Kapoor R.N. Medication Administered: DEMEROL [IVP] (MEPERIDINE HCL), Dose: 12.5 mg IVP over 2 minute(s), Site: #1 right hand. Medication Ordered: Demerol IV 12.5 mg (NOW). Given 12:03/21/2017 Rosa Kapoor R.N. Medication Administered: REGLAN [IVP] (METOCLOPRAMIDE HCL), Dose: 10 mg IVP over 10 minute(s), Site: #1 right hand. Medication Ordered: Reglan IV 10 mg (NOW). Start 13:03/21/2017 Rosa Kapoor R.N. Medication Administered: KCL [IVPB] (POTASSIUM CHLORIDE), Dose: 20 meq IVPB over 2 hour(s), Rate: 50 mL/hr, Dispensed: 100 mL bag, Site: #1 right hand. Medication Ordered: KCl IV 20 meq/100mL (Run no faster than 10 units/hr, Run no faster than 10 mEq/hr). Start 13:03/21/2017 Rosa Kapoor R.N., Stop 14:52 03/21/2017 Rosa Kapoor R.N. Medication Administered: IV NS (SALINE), Dose: IV Fluids over 1 hour(s), Rate: 1000 mL/hr, Dispensed: 1000 mL bag, Site: #1 right hand. Medication Ordered: IV NS : initial bolus 1000 mL (1000 mL/hr), then 1000 mL/hr for X1 (NOW). Given 14:42 03/21/2017 Rosa Kapoor R.N. Medication Administered: DEMEROL [IVP] (MEPERIDINE HCL), Dose: 12.5 mg IVP over 1 minute(s), Site: #1 right hand. Medication Ordered: Demerol IV 12.5 mg (NOW). Start 14:55 03/21/2017 Rosa Kapoor R.N., Stop 17:11 03/21/2017 Rosa Kapoor R.N. Medication Administered: IV NS (SALINE), Dose: IV Fluids over 7.5 hour(s), Rate: 150 mL/hr, Dispensed: 1000 mL bag, Site: #1 right hand. Medication Ordered: IV NS : initial bolus none -, then 150 mL/hr (NOW).
--- NOTE | 2017-03-23 06:56 | ED MAR SUMMARY ---
..... Medication Administration Record [facility] [address] [place] [address] Patient: TOMMIE FRIAS Visit ID: [id number] 47y, F Weight: 90.7 kg Height/Length: 67 in BMI: 31.3 ALLERGIES: No Known Drug Allergy Given 11:03/21/2017 Rosa Kapoor R.N. Medication Administered: ZOFRAN [IVP] (ONDANSETRON HCL), Dose: 4 mg IVP over 2 minute(s), Site: #1 right hand. Medication Ordered: Zofran IV 4 mg (NOW). Start 11:32 03/21/2017 Rosa Kapoor R.N., Stop 13:03/21/2017 Rosa Kapoor R.N. Medication Administered: IV NS (SALINE), Dose: IV Fluids over 1 hour(s), Rate: 1000 mL/hr, Dispensed: 1000 mL bag, Site: #1 right hand. Medication Ordered: IV NS with Normal Saline 1 Liter: initial bolus 1000 mL (1000 mL/hr), then 1000 mL/hr for X1 (NOW). Given 12:03/21/2017 Rosa Kapoor R.N. Medication Administered: DEMEROL [IVP] (MEPERIDINE HCL), Dose: 12.5 mg IVP over 2 minute(s), Site: #1 right hand. Medication Ordered: Demerol IV 12.5 mg (NOW). Given 12:03/21/2017 Rosa Kapoor R.N. Medication Administered: REGLAN [IVP] (METOCLOPRAMIDE HCL), Dose: 10 mg IVP over 10 minute(s), Site: #1 right hand. Medication Ordered: Reglan IV 10 mg (NOW). Start 13:03/21/2017 Rosa Kapoor R.N. Medication Administered: KCL [IVPB] (POTASSIUM CHLORIDE), Dose: 20 meq IVPB over 2 hour(s), Rate: 50 mL/hr, Dispensed: 100 mL bag, Site: #1 right hand. Medication Ordered: KCl IV 20 meq/100mL (Run no faster than 10 units/hr, Run no faster than 10 mEq/hr). Start 13:03/21/2017 Rosa Kapoor R.N., Stop 14:52 03/21/2017 Rosa Kapoor R.N. Medication Administered: IV NS (SALINE), Dose: IV Fluids over 1 hour(s), Rate: 1000 mL/hr, Dispensed: 1000 mL bag, Site: #1 right hand. Medication Ordered: IV NS : initial bolus 1000 mL (1000 mL/hr), then 1000 mL/hr for X1 (NOW). Given 14:42 03/21/2017 Rosa Kapoor R.N. Medication Administered: DEMEROL [IVP] (MEPERIDINE HCL), Dose: 12.5 mg IVP over 1 minute(s), Site: #1 right hand. Medication Ordered: Demerol IV 12.5 mg (NOW). Start 14:55 03/21/2017 Rosa Kapoor R.N., Stop 17:11 03/21/2017 Rosa Kapoor R.N. Medication Administered: IV NS (SALINE), Dose: IV Fluids over 7.5 hour(s), Rate: 150 mL/hr, Dispensed: 1000 mL bag, Site: #1 right hand. Medication Ordered: IV NS : initial bolus none -, then 150 mL/hr (NOW).
== END 2017-03-21 17:15 | disposition home or self-care (01) ==
LOC: ED SRH 11:01
DX: N30.90 Cystitis, unspecified without hematuria (principal); E87.6 Hypokalemia; E86.0 Dehydration; E86.9 Volume depletion, unspecified; F11.23 Opioid dependence with withdrawal; R11.2 Nausea with vomiting, unspecified; F17.210 Nicotine dependence, cigarettes, uncomplicated; I10 Essential (primary) hypertension; Z79.899 Other long term (current) drug therapy
CPT/HCPCS: 90004; 90074; 90100; 90148; 90469; 92031; 92235; 92530; 95059